=== PATIENT | female | born 1965 | race Caucasian/White ===

== ENCOUNTER 2022-03-17 15:41 | Emergency (ER) | payer OTHER ==
[~2022-03-17] VITALS: Ht 154.9 cm; Wt 65.9 kg
[2022-03-17] MEDS ORDERED: cefTRIAXone SOD 1,000 MG VL IM ONE (17:15)
[2022-03-17] MEDS ORDERED: LIDOCAINE 1% HCL (LOCAL ANESTH.) INJ 20ML MDV IJ ONE (17:15)
[2022-03-17] MEDS ORDERED: METF-370 PO (17:55)
[2022-03-17] MEDS ORDERED: AMLO-496 PO (17:55)
[2022-03-17] MEDS ORDERED: BACDST PO (17:55)
[2022-03-17] MEDS ORDERED: LISI-716 PO (17:55)
[2022-03-17] MEDS ORDERED: cloNIDine HCL 0.1 MG TAB PO ONE (18:00)
[2022-03-17 18:06] VITALS: BP 196/91
== END 2022-03-17 18:05 | disposition home or self-care (01) ==
LOC: ER 15:43
DX: L02.11 Cutaneous abscess of neck (principal); I10 Essential (primary) hypertension; E11.9 Type 2 diabetes mellitus without complications; Z76.0 Encounter for issue of repeat prescription; Z90.49 Acquired absence of other specified parts of digestive tract; Z90.89 Acquired absence of other organs
CPT/HCPCS: 10060; 82962; 87077; 87186; 87205; 96372; 99283; J0696; J2001

== ENCOUNTER 2022-03-20 10:04 | Emergency (ER) | payer OTHER ==
[~2022-03-20] VITALS: Ht 157.5 cm; Wt 68.6 kg
[~2022-03-20 10:04] MED LIST: AMLO-496 PO; BACDST PO; LISI-716 PO; METF-370 PO
[2022-03-20 11:40] VITALS: BP 155/84
== END 2022-03-20 11:51 | disposition home or self-care (01) ==
LOC: ER 10:04
DX: L02.11 Cutaneous abscess of neck (principal); E11.9 Type 2 diabetes mellitus without complications; I10 Essential (primary) hypertension; Z90.49 Acquired absence of other specified parts of digestive tract; Z90.89 Acquired absence of other organs